=== PATIENT | female | born 2000 | race Two or more races ===

== ENCOUNTER 2024-02-07 13:31 | Outpatient (CLI) | payer OTHER | END 2024-02-07 13:35 | disposition home or self-care (01) | LOC: PRENATAL 13:31 | PROVIDERS: ATTEND Obstetrics & Gynecology Maternal & Fetal Medicine | DX: O36.80X0 Pregnancy with inconclusive fetal viability, not applicable or unspecified (principal); Z36.82 Encounter for antenatal screening for nuchal translucency; O99.891 Other specified diseases and conditions complicating pregnancy; Z3A.11 11 weeks gestation of pregnancy ==

== ENCOUNTER 2024-02-10 13:44 | Emergency (ER) | payer OTHER ==
[~2024-02-10] VITALS: Ht 162.6 cm; Wt 65.8 kg
[2024-02-10] MEDS ORDERED: GUAIFENESIN 200 MG/10 ML BLIST.PACK PO ONE (14:45)
[2024-02-10] MEDS ORDERED: BENZONATATE 100 MG CAPSULE PO ONE (14:45)
[2024-02-10] MEDS ORDERED: GUAIFENESIN/DEXTROMETHORPHAN 10ML BLIST.PACK PO ONE (14:49)
== END 2024-02-10 17:46 | disposition home or self-care (01) ==
LOC: ER 13:45
DX: O26.891 Other specified pregnancy related conditions, first trimester (principal); Z3A.11 11 weeks gestation of pregnancy; J11.1 Influenza due to unidentified influenza virus with other respiratory manifestations; Z87.09 Personal history of other diseases of the respiratory system

== ENCOUNTER 2024-04-10 09:39 | Outpatient (CLI) | payer OTHER | END 2024-04-10 09:40 | disposition home or self-care (01) | LOC: PRENATAL 09:39 | PROVIDERS: ATTEND Obstetrics & Gynecology Maternal & Fetal Medicine | DX: O35.3XX0 Maternal care for (suspected) damage to fetus from viral disease in mother, not applicable or unspecified (principal); O44.00 Complete placenta previa NOS or without hemorrhage, unspecified trimester; O99.891 Other specified diseases and conditions complicating pregnancy; Z3A.20 20 weeks gestation of pregnancy ==

== ENCOUNTER 2024-06-05 09:39 | Outpatient (CLI) | payer OTHER | END 2024-06-05 09:40 | disposition home or self-care (01) | LOC: PRENATAL 09:39 | PROVIDERS: ATTEND Obstetrics & Gynecology Maternal & Fetal Medicine | DX: O26.849 Uterine size-date discrepancy, unspecified trimester (principal); O99.891 Other specified diseases and conditions complicating pregnancy; Z3A.29 29 weeks gestation of pregnancy ==

== ENCOUNTER 2024-07-17 09:12 | Outpatient (CLI) | payer OTHER | END 2024-07-17 09:13 | disposition home or self-care (01) | LOC: PRENATAL 09:12 | PROVIDERS: ATTEND Obstetrics & Gynecology Maternal & Fetal Medicine | DX: O26.849 Uterine size-date discrepancy, unspecified trimester (principal); O36.8199 Decreased fetal movements, unspecified trimester, other fetus; O99.891 Other specified diseases and conditions complicating pregnancy; O99.019 Anemia complicating pregnancy, unspecified trimester; Z3A.34 34 weeks gestation of pregnancy ==

== ENCOUNTER 2024-07-22 08:27 | Outpatient (CLI) | payer OTHER | END 2024-07-22 08:28 | disposition home or self-care (01) | LOC: PRENATAL 08:27 | PROVIDERS: ATTEND Obstetrics & Gynecology Maternal & Fetal Medicine | DX: Z76.1 Encounter for health supervision and care of foundling (principal) ==

== ENCOUNTER 2024-08-12 09:27 | Outpatient (CLI) | payer OTHER | END 2024-08-12 09:28 | disposition home or self-care (01) | LOC: PRENATAL 09:27 | PROVIDERS: ATTEND Obstetrics & Gynecology Maternal & Fetal Medicine | DX: Z76.1 Encounter for health supervision and care of foundling (principal) ==

== ENCOUNTER 2024-08-19 13:00 | Inpatient (IN) | payer OTHER ==
[~2024-08-19] VITALS: Ht 160 cm; Wt 3.2 kg
[2024-08-20 17:53] VITALS: BP 112/69
[2024-08-20] MEDS ORDERED: RINGERS SOLUTION,LACTATED 1,000 ML IV SCH (21:00)
[2024-08-20 21:49] LABS: URINE APPEARANCE Clear; URINE BACTERIA 20.7 uL (0.0-1933); URINE BILIRRUBIN Negative (NEGATIVE); URINE BLOOD Negative; URINE COLOR Yellow; URINE EPITHELIAL CELLS 13.2 uL (0.0-38.8); URINE GLUCOSE Negative (NEGATIVE); URINE KETONE Negative (NEGATIVE); URINE LEUKOCYTE Negative; URINE NITRATE Negative; URINE PROTEIN Negative (NEGATIVE); URINE UROBILINOGEN 0.2 E.U./dl; URINE WBC 2.8 uL (0.0-23.2)
[2024-08-20 21:53] LABS: URINE RBC 1.7 uL (0.0-20.8)
[2024-08-20 21:54] LABS: HEMATOCRIT 35.6 % (36.0-45.00); HEMOGLOBIN 11.7 g/dL (12.0-15.00); MEAN CELL VOLUME 82.4 fL (80.00-100.00); MEAN CORPUSCULAR HGB CONC 32.8 g/dl (32.0-36.0); PLATELET COUNT 187 K/uL (150-450); RED BLOOD COUNT 4.32 M/uL (4.00-6.00); RED CELL DISTRIBUTION WIDTH 19.2 % (11.5-14.5)
[2024-08-20 22:10] LABS: INR 0.99; PARTIAL THROMBOPLASTIN TIME 27.8 SECONDS (22.0-34.0); PROTHROMBIN TIME 10.8 SECONDS (9.0-11.5)
[2024-08-20 22:14] LABS: ALBUMIN 2.9 gm/dL (3.4-5.0); BILIRUBIN TOTAL 0.28 mg/dL (0.3-1.2); CALCIUM 9.2 mg/dL (8.5-10.1); CREATININE SERUM 0.53 mg/dL (0.55-1.02); GFR 144.25; GLOBULINA 3.6 G/DL (2.4-3.5); POTASSIUM 3.78 mEq/L (3.5-5.1); TOTAL PROTEIN 6.5 gm/dL (6.4-8.2)
[2024-08-20] MEDS ORDERED: MISOPROSTOL 25 MCG/4 ML GEL.W.APPL VAG ONE (22:15)
[2024-08-20] MEDS ORDERED: AMPICILLIN SODIUM 2,000 MG VIAL IV ONE (22:15)
[2024-08-20 23:26] VITALS: BP 128/70
[2024-08-21] MEDS ORDERED: AMPICILLIN SODIUM 1,000 MG VIAL IV SCH (01:00)
[2024-08-21 04:13] VITALS: BP 136/65
[2024-08-21] MEDS ORDERED: MORPHINE SULFATE 4 MG/ML CARTRIDGE IV ONE (04:45)
[2024-08-21 07:33] VITALS: BP 118/63
[2024-08-21] MEDS ORDERED: OXYTOCIN 500 ML IV SCH (08:30)
[2024-08-21] MEDS ORDERED: MORPHINE SULFATE 4 MG/ML VIAL IV ONE ×3 (09:30→22:00)
[2024-08-21 12:04] VITALS: BP 137/83
[2024-08-21 15:39] VITALS: BP 134/77
[2024-08-21] MEDS ORDERED: CEFAZOLIN SODIUM 1,000 MG VIAL IV ONE (17:45)
[2024-08-21] MEDS ORDERED: ERYTHROMYCIN BASE OPHT 1GM EACH TUBE OP ONE (17:49)
[2024-08-21] MEDS ORDERED: OXYTOCIN 10 UNITS/ML VIAL ONE ×2 (17:49→23:13)
[2024-08-21] MEDS ORDERED: CEFAZOLIN SODIUM 1,000 MG VIAL ONE (18:29)
[2024-08-21] MEDS ORDERED: MEPERIDINE HCL/PF 25 MG/ML VIAL IV PRN (19:00)
[2024-08-21] MEDS ORDERED: OXYTOCIN 1,000 ML IV SCH (19:00)
[2024-08-21] MEDS ORDERED: KETOROLAC TROMETHAMINE 30 MG VIAL IV PRN (19:00)
[2024-08-21] MEDS ORDERED: PROMETHAZINE HCL 25 MG/ML AMPUL IV PRN (19:00)
[2024-08-21] MEDS ORDERED: AMPICILLIN SODIUM 1,000 MG VIAL ONE (21:54)
[2024-08-21] MEDS ORDERED: KETOROLAC TROMETHAMINE 30 MG VIAL ONE (23:13)
[2024-08-22] MEDS ORDERED: AMPICILLIN SODIUM 1,000 MG VIAL ONE (00:52)
[2024-08-22 01:05] LABS: HEMATOCRIT 33.3 % (36.0-45.00); HEMOGLOBIN 10.5 g/dL (12.0-15.00); MEAN CELL VOLUME 82.9 fL (80.00-100.00); MEAN CORPUSCULAR HEMOGLOBIN 26.2 pg (27.00-32.0); MEAN CORPUSCULAR HGB CONC 31.6 g/dl (32.0-36.0); PLATELET COUNT 175 K/uL (150-450); RED BLOOD COUNT 4.01 M/uL (4.00-6.00); RED CELL DISTRIBUTION WIDTH 19.9 % (11.5-14.5)
[2024-08-22 01:21] VITALS: BP 117/60
[2024-08-22 05:53] VITALS: BP 118/75
[2024-08-22] MEDS ORDERED: OxyCODONE HCL/APAP UD (PERCOCET) PO PRN (07:00)
[2024-08-22] MEDS ORDERED: IBUprofen 800 MG TABLET PO PRN (07:00)
[2024-08-22 08:00] VITALS: BP 106/70
[2024-08-22] MEDS ORDERED: DOCUSATE SODIUM 100MG CAP PO SCH (09:00)
[2024-08-22] MEDS ORDERED: SIMETHICONE 125 MG CAPSULE PO SCH (09:00)
[2024-08-22 16:00] VITALS: BP 97/60
[2024-08-23 01:23] VITALS: BP 108/64
[2024-08-23 08:00] VITALS: BP 112/72
[2024-08-23 16:14] VITALS: BP 126/82
[2024-08-24 00:01] VITALS: BP 111/68
[2024-08-24 08:56] VITALS: BP 107/69
== END 2024-08-24 14:13 | disposition home or self-care (01) | DRG 788 ==
LOC: LDR 08-20 20:16 → O/R 08-21 19:49 → OB/GYN 08-21 19:58 → LDR 08-28 13:00
PROVIDERS: Student in an Organized Health Care Education/Training Program; ADMIT Obstetrics & Gynecology; ATTEND Obstetrics & Gynecology
PROC: 3E0P7VZ Introduction of Hormone into Female Reproductive, Via Natural or Artificial Opening (ICD-10-PCS; 2024-08-20)
PROC: 4A1HXCZ Monitoring of Products of Conception, Cardiac Rate, External Approach (ICD-10-PCS; 2024-08-20)
PROC: 3E033VJ Introduction of Other Hormone into Peripheral Vein, Percutaneous Approach (ICD-10-PCS; 2024-08-21)
PROC: 10D00Z1 Extraction of Products of Conception, Low, Open Approach (ICD-10-PCS; principal; 2024-08-21 20:15)
DX: O36.8330 Maternal care for abnormalities of the fetal heart rate or rhythm, third trimester, not applicable or unspecified (principal); O99.824 Streptococcus B carrier state complicating childbirth; Z3A.39 39 weeks gestation of pregnancy; Z37.0 Single live birth